=== PATIENT | male | born 1990 ===

== ENCOUNTER 2021-12-15 09:12 | Outpatient (CLI) | payer OTHER ==
[2021-12-15] MEDS ORDERED: Gadobenate Dimeglumine 529 MG/1 ML (20ML VIAL) ONE (10:15)
[2021-12-15] MEDS ORDERED: EPINEPHrine 1 MG/ML AMP ONE (10:15)
[2021-12-15] MEDS ORDERED: Iopamidol 300 61% 50 ML VIAL FS ONE (10:15)
[2021-12-15] MEDS ORDERED: Lidocaine 1% PF 10 ML AMP ONE (10:15)
== END 2021-12-15 09:13 | disposition home or self-care (01) ==
LOC: RAD 09:12
PROVIDERS: ATTEND Orthopaedic Surgery
DX: M24.411 Recurrent dislocation, right shoulder (principal); S43.401A Unspecified sprain of right shoulder joint, initial encounter; E75.02 Tay-Sachs disease
CPT/HCPCS: 23350; A9577; J0171; J2001; Q9967